=== PATIENT | female | born 2000 | race Two or more races ===

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

== ENCOUNTER 2021-09-19 19:33 | Emergency (ER) | payer OTHER ==
[2021-09-19 19:46] VITALS: BP 137/92; PULSE 84; TEMP 98.3; BMI 24.1
[2021-09-19] MEDS ORDERED: ACETAMINOPHEN 325 MG TABLET (FP) PO ONE (21:33)
[2021-09-19] MEDS ORDERED: ACETAMINOPHEN 325 MG TABLET (FP) ONE (21:38)
[2021-09-19 22:00] LABS: BASO % 0.7 % (0-2.0); HEMATOCRIT 37.8 % (32.4-45.2); LYMPH % 29.3 % (8-40); MCH 28.5 pg (25.7-33.7); MCHC 34.3 g/dl (32.0-36.0); MEAN PLT VOLUME 8.1 fl (7.5-11.1); MONO % 5.7 % (3.8-10.2); NEUT % 63.3 % (42.8-82.8); PLATELET COUNT 393 10^3/uL (134-434); RBC 4.55 M/mm3 (3.60-5.2); RDW 13.8 % (11.6-15.6); WHITE BLOOD COUNT 9.3 K/mm3 (4.0-10.0)
[2021-09-19 22:13] LABS: BLOOD UREA NITROGEN 7.8 mg/dL (7-18); CALCIUM 9.1 mg/dL (8.5-10.1)
[2021-09-19 22:17] LABS: CREATININE 0.6 mg/dL (0.55-1.3)
[2021-09-19 22:18] LABS: BILIRUBIN,TOTAL 0.2 mg/dL (0.2-1)
[2021-09-19 22:19] LABS: TOT PROT 7.7 g/dl (6.4-8.2)
== END 2021-09-19 23:14 ==
LOC: JER 19:33
DX: R07.9 Chest pain, unspecified (principal)
CPT/HCPCS: 36415; 71046-TC-FY; 80053; 84484; 84703; 85025; 93005; 93010; 99285-25

== ENCOUNTER 2023-05-16 20:18 | Emergency (ER) | payer OTHER ==
[2023-05-16 20:42] VITALS: BMI 33.4
[2023-05-16] MEDS ORDERED: SODIUM CHLORIDE 0.9% 500 ML INFUS.BAG IV ONE ×2 (21:50→23:28)
[2023-05-16] MEDS ORDERED: ONDANSETRON 4 MG/2 ML VIAL IVPUSH ONE (21:50)
[2023-05-16] MEDS ORDERED: FAMOTIDINE 20 MG/50 ML IVPB 20 MG/50 ML MG IVPB ONE ×2 (21:51→22:10)
[2023-05-16] MEDS ORDERED: MAG HYDROX/AL HYDROX/SIMETH -MYLANTA- ORAL SUSPENSION PO ONE (21:51)
[2023-05-16] MEDS ORDERED: ONDANSETRON 4 MG/2 ML VIAL ONE (22:10)
[2023-05-16] MEDS ORDERED: MAG HYDROX/AL HYDROX/SIMETH 30 ML UNIT-DOSE CUP ONE (22:10)
[2023-05-16 22:25] LABS: EPI CELLS 12 /uL (0-25.1); HYALINE CASTS 2 /uL (0-3.1); PH,URINE 5.5 (5.0-8.0); URINE APPEARANCE CLEAR; URINE BACTERIA 790 /uL (0-1359); URINE BILIRUBIN NEGATIVE (NEGATIVE); URINE COLOR YELLOW; URINE GLUCOSE (UA) NEGATIVE (NEGATIVE); URINE KETONE 4+ (NEGATIVE); URINE LEUK ESTERASE NEGATIVE (NEGATIVE); URINE NITRITE NEGATIVE (NEGATIVE); URINE PROTEIN 2+ (NEGATIVE); URINE RBC 1854 /uL (0-23.9); URINE UROBILINOGEN 0.2 mg/dL (0.2-1.0)
[2023-05-16 22:28] LABS: BASO % 0.4 % (0-2.0); HEMATOCRIT 47.5 % (32.4-45.2); HEMOGLOBIN 15.7 GM/dL (10.7-15.3); LYMPH % 8.4 % (8-40); MCH 27.5 pg (25.7-33.7); MCHC 33.1 g/dl (32.0-36.0); MEAN PLT VOLUME 8.7 fl (7.5-11.1); MONO % 4.3 % (3.8-10.2); NEUT % 86.9 % (42.8-82.8); PLATELET COUNT 515 10^3/uL (134-434); RBC 5.72 M/mm3 (3.60-5.2); RDW 14.6 % (11.6-15.6); WHITE BLOOD COUNT 12.8 K/mm3 (4.0-10.0)
[2023-05-16 22:30] LABS: INR 1.22 (0.83-1.09); PROTHROMBIN TIME (PATIENT) 14.1 SEC (9.7-13.0)
[2023-05-16 22:33] LABS: ACTIVATED PTT 41.2 SECONDS (25.2-36.5)
[2023-05-16 22:43] LABS: POTASSIUM 4.5 mmol/L (3.5-5.1)
[2023-05-16 22:46] LABS: BLOOD UREA NITROGEN 9.1 mg/dL (7-18); MAGNESIUM 2.4 mg/dL (1.8-2.4)
[2023-05-16 22:48] LABS: ALBUMIN 4.9 g/dl (3.4-5.0)
[2023-05-16 22:49] LABS: CREATININE 0.8 mg/dL (0.55-1.3)
[2023-05-16 22:51] LABS: BILIRUBIN,TOTAL 0.3 mg/dL (0.2-1); TOT PROT 9.6 g/dl (6.4-8.2)
[2023-05-16 23:11] LABS: CALCIUM 10.2 mg/dL (8.5-10.1)
[2023-05-17] MEDS ORDERED: METOCLOPRAMIDE HCL INJECTION 10 MG/2 ML VIAL IVPB ONE (00:52)
[2023-05-17] MEDS ORDERED: METOCLOPRAMIDE HCL INJECTION 10 MG/2 ML VIAL ONE (00:57)
[2023-05-17] MEDS ORDERED: SODIUM CHLORIDE 1,000 ML IV SCH (01:00)
[2023-05-17 01:43] VITALS: BP 114/79; PULSE 113; RESP 16; TEMP 98.3
== END 2023-05-17 05:27 | disposition left against medical advice (07) ==
LOC: JER 20:18 → JERBED 05-17 00:56 → UNDOADMOB 05-17 00:56 → JER 05-17 05:27
PROC: 3E033GC Introduction of Other Therapeutic Substance into Peripheral Vein, Percutaneous Approach (ICD-10-PCS; principal; 2023-05-17)
PROC: 3E033GC Introduction of Other Therapeutic Substance into Peripheral Vein, Percutaneous Approach (ICD-10-PCS; 2023-05-17)
PROC: 3E033GC Introduction of Other Therapeutic Substance into Peripheral Vein, Percutaneous Approach (ICD-10-PCS; 2023-05-17)
DX: R07.9 Chest pain, unspecified (principal); R06.02 Shortness of breath; R10.9 Unspecified abdominal pain; R11.2 Nausea with vomiting, unspecified; E86.0 Dehydration; Z20.822 Contact with and (suspected) exposure to COVID-19
CPT/HCPCS: 0241U-QW; 36415; 71046-TC-FY; 71275-TC; 80053; 81003; 82550; 83690; 83735; 84100; 84443; 84484; 84703; 85025; 85379; 85610; 85730; 87086; 93005; 93010; 99285-25; Q9967